=== PATIENT | female | born 1965 | race Two or more races ===

== ENCOUNTER 2023-06-17 14:14 | Emergency (ER) | payer MEDICAID ==
[2023-06-17 14:55] LABS: BASOPHILS PERCENT AUTO 0.3 % (0.0-1.0); EOSINOPHILS ABSOLUTE AUTO 0.1 K/mm3 (0.0-0.4); EOSINOPHILS PERCENT AUTO 3.5 % (0.0-6.0); HEMOGLOBIN 10.9 gm/dl (12.0-16.0); IMMATURE GRAN ABSOLUTE AUTO 0.01 K/mm3 (0.00-0.05); IMMATURE GRAN PERCENT AUTO 0.3 % (0.0-0.4); LYMPHOCYTES ABSOLUTE AUTO 1.1 K/mm3 (1.0-4.8); LYMPHOCYTES PERCENT AUTO 29.5 % (24.0-44.0); MEAN CORPUSCULAR HEMOGLOBIN 28.4 pg (28.0-32.0); MEAN CORPUSCULAR VOLUME 85.9 fl (83.0-99.0); MEAN PLATELET VOLUME 8.9 fl (9.4-12.3); MONOCYTES ABSOLUTE AUTO 0.4 K/mm3 (0.0-0.8); MONOCYTES PERCENT AUTO 11.8 % (0.0-8.0); NEUTROPHILS PERCENT AUTO 54.6 % (41.0-71.0); PLATELET COUNT,PLT 56 K/mm3 (150-400); RED BLOOD CELL COUNT 3.84 M/mm3 (4.10-5.30); WHITE BLOOD CELL COUNT,WBC 3.73 K/mm3 (3.9-11.3)
[2023-06-17] MEDS: Sodium Chloride 0.9% 10 ML Syringe FLUSH PRN ×2 (15:08→16:59)
[2023-06-17] MEDS: Iopamidol 612 MG/ML 100 ML Bottle IVPUSH ONE (15:08)
[2023-06-17 15:17] LABS: A/G RATIO 0.6 (1-2); ALBUMIN 2.7 g/dl (3.4-5.0); ANION GAP 10.2 (5-15); BILIRUBIN TOTAL 1.9 mg/dL (0.2-1.0); BUN/CREATININE RATIO 6.3 (14-18); C-REACTIVE PROTEIN 0.37 mg/dL (<0.30); CALCIUM 8.3 mg/dL (8.5-10.1); CREATININE 0.8 mg/dL (0.55-1.02); EST CRCL DRUG DOSING (CG) 65.38 mL/min; MAGNESIUM 1.5 mg/dL (1.8-2.4); POTASSIUM,K 3.2 mEq/L (3.5-5.1)
[2023-06-17 15:20] LABS: LACTIC ACID 0.9 mmol/L (0.4-2.0)
[2023-06-17 15:45] LABS: APPEARANCE,URINE CLEAR (Clear); BILIRUBIN,URINE NEGATIVE (Negative); COLOR,URINE YELLOW (Yellow); GLUCOSE,URINE NEGATIVE (Negative); KETONES,URINE NEGATIVE (Negative); LEUKOCYTE ESTERASE,URINE NEGATIVE (Negative); NITRITE,URINE NEGATIVE (Negative); OCCULT BLOOD,URINE NEGATIVE (Negative); PROTEIN,URINE NEGATIVE (Negative)
== END 2023-06-17 18:46 | disposition home or self-care (01) ==
LOC: JD.ED 14:14
DX: C22.0 Liver cell carcinoma (principal); N85.9 Noninflammatory disorder of uterus, unspecified; K76.6 Portal hypertension; D69.6 Thrombocytopenia, unspecified; E80.6 Other disorders of bilirubin metabolism; K40.90 Unilateral inguinal hernia, without obstruction or gangrene, not specified as recurrent; R18.0 Malignant ascites; Z79.899 Other long term (current) drug therapy
CPT/HCPCS: 36415; 74176; 74177; 80053; 81003; 83605; 83735; 85025; 86140; 99284; J3490; Q9967; 99285

== ENCOUNTER 2024-01-29 14:57 | Emergency (ER) | payer MEDICAID ==
[2024-01-29 16:04] LABS: EOSINOPHILS ABSOLUTE AUTO 0.1 K/mm3 (0.0-0.4); EOSINOPHILS PERCENT AUTO 1.1 % (0.0-6.0); HEMOGLOBIN 10.4 gm/dl (12.0-16.0); IMMATURE GRAN ABSOLUTE AUTO 0.02 K/mm3 (0.00-0.05); IMMATURE GRAN PERCENT AUTO 0.4 % (0.0-0.4); LYMPHOCYTES ABSOLUTE AUTO 1.1 K/mm3 (1.0-4.8); LYMPHOCYTES PERCENT AUTO 24.3 % (24.0-44.0); MEAN CORPUSCULAR HEMOGLOBIN 29.7 pg (28.0-32.0); MEAN CORPUSCULAR HGB CONC 34.7 g/dl (32.0-36.0); MEAN CORPUSCULAR VOLUME 85.7 fl (83.0-99.0); MEAN PLATELET VOLUME 10.1 fl (9.4-12.3); MONOCYTES ABSOLUTE AUTO 0.3 K/mm3 (0.0-0.8); MONOCYTES PERCENT AUTO 6.1 % (0.0-8.0); NEUTROPHILS ABSOLUTE AUTO 3.1 K/mm3 (1.8-7.7); NEUTROPHILS PERCENT AUTO 68.1 % (41.0-71.0); PLATELET COUNT,PLT 52 K/mm3 (150-400); WHITE BLOOD CELL COUNT,WBC 4.57 K/mm3 (3.9-11.3)
[2024-01-29] MEDS: Sodium Chloride 0.9% 1,000 ML IV ONE (16:14)
[2024-01-29] MEDS: fentaNYL 100 MCG/2 ML SDV IVPUSH ONE (16:14)
[2024-01-29 16:22] LABS: A/G RATIO 0.7 (1-2); ALANINE AMINOTRANSFERASE,ALT 27 U/L (14-59); ALBUMIN 2.6 g/dl (3.4-5.0); ALKALINE PHOSPHATASE 205 U/L (46-116); ANION GAP 12.9 (5-15); ASPARTATE AMNIOTRANSFERASE,AST 37 U/L (15-37); BILIRUBIN TOTAL 2.2 mg/dL (0.2-1.0); BLOOD UREA NITROGEN,BUN 19 mg/dL (7-18); BUN/CREATININE RATIO 23.8 (14-18); CALCIUM 8.3 mg/dL (8.5-10.1); CARBON DIOXIDE,CO2 24 mEq/L (21-32); CHLORIDE,CL 101 mEq/L (98-107); CREATININE 0.8 mg/dL (0.55-1.02); EST CRCL DRUG DOSING (CG) 64.58 mL/min; ESTIMATED GFR 84 mL/min (>60); GLUCOSE RANDOM 114 mg/dL (70-99); LIPASE 47 U/L (16-77); MAGNESIUM 1.6 mg/dL (1.8-2.4); POTASSIUM,K 3.9 mEq/L (3.5-5.1); PROTEIN TOTAL,TP 6.4 g/dl (6.4-8.2); SODIUM,NA 134 mEq/L (136-145)
[2024-01-29 16:29] LABS: TROPONIN I HIGH SENSITIVITY < 4 pg/mL (<=51)
[2024-01-29] MEDS: Sodium Chloride 0.9% 10 ML Syringe FLUSH PRN (16:50)
[2024-01-29] MEDS: Sodium Chloride 0.9% 100 ML IV SCH (16:50)
[2024-01-29] MEDS: Iopamidol 755 Mg/ML 100 ML Bottle IVPUSH ONE (16:50)
[2024-01-29 18:27] LABS: APPEARANCE,URINE CLEAR (Clear); BILIRUBIN,URINE NEGATIVE (Negative); COLOR,URINE YELLOW (Yellow); GLUCOSE,URINE NEGATIVE (Negative); KETONES,URINE NEGATIVE (Negative); LEUKOCYTE ESTERASE,URINE NEGATIVE (Negative); NITRITE,URINE NEGATIVE (Negative); OCCULT BLOOD,URINE NEGATIVE (Negative); PROTEIN,URINE NEGATIVE (Negative)
[2024-01-29] MEDS: Pantoprazole 40 MG Vial IVPUSH ONE (18:59)
[2024-01-29] MEDS: Octreotide 500 MCG in Sodium Chloride 0.9% 499 ML IV SCH (18:59)
[2024-01-29] MEDS: Octreotide 100 MCG/ML SDV IV ONE (19:06)
[2024-01-29 20:25] LABS: EOSINOPHILS PERCENT AUTO 0.2 % (0.0-6.0); HEMATOCRIT 26.6 % (37.0-47.0); HEMOGLOBIN 9.3 gm/dl (12.0-16.0); IMMATURE GRAN ABSOLUTE AUTO 0.02 K/mm3 (0.00-0.05); IMMATURE GRAN PERCENT AUTO 0.5 % (0.0-0.4); LYMPHOCYTES PERCENT AUTO 24.7 % (24.0-44.0); MEAN CORPUSCULAR HEMOGLOBIN 29.9 pg (28.0-32.0); MEAN CORPUSCULAR VOLUME 85.5 fl (83.0-99.0); MEAN PLATELET VOLUME 9.7 fl (9.4-12.3); MONOCYTES ABSOLUTE AUTO 0.2 K/mm3 (0.0-0.8); MONOCYTES PERCENT AUTO 5.6 % (0.0-8.0); NEUTROPHILS ABSOLUTE AUTO 2.8 K/mm3 (1.8-7.7); PLATELET COUNT,PLT 48 K/mm3 (150-400); RED BLOOD CELL COUNT 3.11 M/mm3 (4.10-5.30); WHITE BLOOD CELL COUNT,WBC 4.09 K/mm3 (3.9-11.3)
[2024-01-29 21:36] LABS: INR 1.34; PROTHROMBIN TIME 13.9 SECONDS (9.7-12.0)
[2024-01-29 21:37] LABS: PTT,PARTIAL THROMBOPLSTIN TIME 25.4 SECONDS (21.7-31.4)
[2024-01-29] MEDS ORDERED: Naloxone 0.4 MG/ML SDV IVPUSH PRN (21:43)
[2024-01-29] MEDS ORDERED: HYDROmorphone 0.5 MG/0.5 ML Syringe IVPUSH ONE (21:43)
[2024-01-29] MEDS: D5 1/2 NS w/ 20 mEq/L KCl 1,000 ML IV SCH (22:35)
[2024-01-29] MEDS: Ondansetron 4 MG/2 ML SDV IVPUSH ONE (22:36)
[2024-01-30] MEDS: LORazepam 2 MG/ML SDV IVPUSH ONE (01:53)
[2024-01-30 04:20] LABS: EOSINOPHILS PERCENT AUTO 0.3 % (0.0-6.0); HEMATOCRIT 21.3 % (37.0-47.0); IMMATURE GRAN ABSOLUTE AUTO 0.01 K/mm3 (0.00-0.05); IMMATURE GRAN PERCENT AUTO 0.3 % (0.0-0.4); LYMPHOCYTES PERCENT AUTO 34.3 % (24.0-44.0); MEAN CORPUSCULAR HEMOGLOBIN 29.7 pg (28.0-32.0); MEAN CORPUSCULAR HGB CONC 34.7 g/dl (32.0-36.0); MEAN CORPUSCULAR VOLUME 85.5 fl (83.0-99.0); MEAN PLATELET VOLUME 9.4 fl (9.4-12.3); MONOCYTES ABSOLUTE AUTO 0.3 K/mm3 (0.0-0.8); MONOCYTES PERCENT AUTO 9.8 % (0.0-8.0); NEUTROPHILS ABSOLUTE AUTO 1.6 K/mm3 (1.8-7.7); NEUTROPHILS PERCENT AUTO 55.3 % (41.0-71.0); PLATELET COUNT,PLT 39 K/mm3 (150-400); RED BLOOD CELL COUNT 2.49 M/mm3 (4.10-5.30); WHITE BLOOD CELL COUNT,WBC 2.97 K/mm3 (3.9-11.3)
[2024-01-30] MEDS ORDERED: Sodium Chloride 0.9% 500 ML IV ONE (04:27)
[2024-01-30 05:36] LABS: HEMOGLOBIN 7.4 gm/dl (12.0-16.0)
[2024-01-30 07:13] LABS: SLIDE REVIEW ABNORMAL SMEAR
[2024-01-30] MEDS ORDERED: Sodium Chloride 0.9% 1,000 ML ONE (08:05)
== END 2024-01-30 12:25 ==
LOC: JD.ED 14:57
DX: I85.00 Esophageal varices without bleeding (principal); D64.9 Anemia, unspecified; Z79.899 Other long term (current) drug therapy; Z87.19 Personal history of other diseases of the digestive system
CPT/HCPCS: 36415; 36430; 71275; 71275-26; 74177; 74177-26; 80053; 81003; 83690; 83735; 83880; 84484; 85025; 85610; 85730; 86850; 86900; 86901; 86922; 87428-QW; 93005; 93010; 96361; 96365; 96366; 96368; 96375; 96376; 99284; 99285-25; J2060; J2354-JA; J2405; J2470; J3010; J3480; J3490; J7030; J7040; P9016; Q9967

== ENCOUNTER 2024-04-02 14:33 | Emergency (ER) | payer MEDICAID ==
[2024-04-02] MEDS ORDERED: Sodium Chloride 0.9% 10 ML Syringe FLUSH PRN (15:07)
[2024-04-02] MEDS: Pantoprazole 40 MG Vial IVPUSH ONE (15:21)
[2024-04-02] MEDS: Sodium Chloride 0.9% 1,000 ML IV SCH ×2 (15:21→17:39)
[2024-04-02] MEDS: Sodium Chloride 0.9% 10 ML Syringe FLUSH ONE (15:37)
[2024-04-02] MEDS: Iopamidol 612 MG/ML 100 ML Bottle IVPUSH ONE (15:37)
[2024-04-02 16:01] LABS: EOSINOPHILS PERCENT AUTO 0.5 % (0.0-6.0); HEMATOCRIT 31.6 % (37.0-47.0); HEMOGLOBIN 10.6 gm/dl (12.0-16.0); IMMATURE GRAN ABSOLUTE AUTO 0.03 K/mm3 (0.00-0.05); IMMATURE GRAN PERCENT AUTO 0.7 % (0.0-0.4); LYMPHOCYTES ABSOLUTE AUTO 0.7 K/mm3 (1.0-4.8); LYMPHOCYTES PERCENT AUTO 15.3 % (24.0-44.0); MEAN CORPUSCULAR HEMOGLOBIN 30.6 pg (28.0-32.0); MEAN CORPUSCULAR HGB CONC 33.5 g/dl (32.0-36.0); MEAN CORPUSCULAR VOLUME 91.3 fl (83.0-99.0); MEAN PLATELET VOLUME 9.7 fl (9.4-12.3); MONOCYTES ABSOLUTE AUTO 0.3 K/mm3 (0.0-0.8); MONOCYTES PERCENT AUTO 7.2 % (0.0-8.0); NEUTROPHILS ABSOLUTE AUTO 3.3 K/mm3 (1.8-7.7); NEUTROPHILS PERCENT AUTO 76.3 % (41.0-71.0); PLATELET COUNT,PLT 64 K/mm3 (150-400); RED BLOOD CELL COUNT 3.46 M/mm3 (4.10-5.30)
[2024-04-02 16:06] LABS: A/G RATIO 0.7 (1-2); ALBUMIN 2.6 g/dl (3.4-5.0); ANION GAP 13.3 (5-15); BILIRUBIN TOTAL 2.5 mg/dL (0.2-1.0); BUN/CREATININE RATIO 18.9 (14-18); CALCIUM 8.5 mg/dL (8.5-10.1); CREATININE 0.9 mg/dL (0.55-1.02); EST CRCL DRUG DOSING (CG) 59.81 mL/min; INR 1.33; POTASSIUM,K 4.3 mEq/L (3.5-5.1); PROTEIN TOTAL,TP 6.6 g/dl (6.4-8.2); PROTHROMBIN TIME 13.8 SECONDS (9.7-12.0)
[2024-04-02 16:07] LABS: PTT,PARTIAL THROMBOPLSTIN TIME 25.8 SECONDS (21.7-31.4)
[2024-04-02 16:38] LABS: SLIDE REVIEW ABNORMAL SMEAR
[2024-04-02] MEDS: Octreotide 100 MCG/ML SDV IVPUSH ONE (17:41)
[2024-04-02] MEDS: Octreotide 500 MCG in Sodium Chloride 0.9% 499 ML IV SCH (17:43)
[2024-04-02] MEDS ORDERED: Ondansetron 4 MG/2 ML SDV ONE (17:45)
[2024-04-02] MEDS: Ondansetron 4 MG/2 ML SDV IVPUSH ONE (17:48)
== END 2024-04-02 18:06 ==
LOC: JD.ED 14:33
DX: I85.01 Esophageal varices with bleeding (principal); C22.0 Liver cell carcinoma; K76.6 Portal hypertension; D69.6 Thrombocytopenia, unspecified; Z79.899 Other long term (current) drug therapy
CPT/HCPCS: 36415; 71045; 71045-26; 74177; 74177-26; 80053; 85025; 85610; 85730; 86850; 86900; 86901; 93005; 96361; 96365; 96375; 99285-25; J2354-JA; J2405; J2470; J7030; J7040; Q9967